=== PATIENT | female | born 1980 | race African-American/Black ===

== ENCOUNTER 2022-04-20 10:29 | Emergency (ER) | payer OTHER ==
[~2022-04-20] VITALS: Ht 167.6 cm; Wt 78.6 kg
[2022-04-20] MEDS ORDERED: DONNATAL/LIDOCAINE/MAALOX 30 ML SUSP PO ONE (12:00)
[2022-04-20] MEDS ORDERED: PANTOPRAZOLE SO40 MG PO (12:01)
[2022-04-20] MEDS ORDERED: FAMOTIDINE40 MG PO (12:04)
[2022-04-20] MEDS ORDERED: LIDOCAINE VISC 2% SOLN 15 ML UDC ONE (12:13)
[2022-04-20] MEDS ORDERED: MAGNESIUM/ALUMINUM/SIMETHICONE 30 ML UDC ONE (12:13)
[2022-04-20] MEDS ORDERED: BELLADONNA ALK/PHENOBARBITAL 5 ML UDC ONE (12:13)
== END 2022-04-20 12:22 | disposition home or self-care (01) ==
LOC: FSED 10:44
DX: K21.9 Gastro-esophageal reflux disease without esophagitis (principal); R51.9 Headache, unspecified
CPT/HCPCS: 83518; 99283